=== PATIENT | female | born 1960 | race Caucasian/White ===

== ENCOUNTER → 2019-02-11 | Outpatient (CLI) | payer SELFPAY | END | disposition home or self-care (01) | LOC: CFH 14:22 | PROVIDERS: ATTEND Physician Assistant Surgical | DX: S82.114A Nondisplaced fracture of right tibial spine, initial encounter for closed fracture (principal); S83.271A Complex tear of lateral meniscus, current injury, right knee, initial encounter; M71.21 Synovial cyst of popliteal space [Baker], right knee; X58.XXXA Exposure to other specified factors, initial encounter; Y93.89 Activity, other specified; Y92.89 Other specified places as the place of occurrence of the external cause; Y99.8 Other external cause status ==